=== PATIENT | male | born 1995 | race Caucasian/White ===

== ENCOUNTER 2019-04-25 19:12 | Emergency (ER) | payer MEDICAID ==
[~2019-04-25] VITALS: Ht 177.8 cm; Wt 72.7 kg
[2019-04-25 19:14] VITALS: Ht 177.8 cm; Wt 72.7 kg
[2019-04-25] MEDS ORDERED: ATIVAN1 MG (19:15)
[2019-04-25 19:46] LABS: BASOPHILS 0.2 % (0-2); EOSINOPHILS 1.9 % (0-7); HEMATOCRIT 40.8 % (42.0-54.0); HEMOGLOBIN 14.3 g/dL (13.5-17.5); IMMATURE GRANULOCYTES 0.2 % (0-5); LYMPHOCYTES 37.2 % (15-50); MCH 26.7 pg (26.0-34.0); MCV 76.1 fL (80.0-100.0); MEAN PLATELET VOLUME 8.3 fL (7.4-10.4); MONOCYTES 6.5 % (2-11); PLATELET COUNT 273 10x3/uL (130-400); RBC 5.36 10x6/uL (4.20-6.10); RDW 13.2 % (11.5-14.5); WBC 5.2 10x3/uL (4.8-10.8)
[2019-04-25 19:48] LABS: APPEARANCE CLEAR (CLEAR); BILIRUBIN NEGATIVE (NEGATIVE); COLOR STRAW (YELLOW); GLUCOSE NEGATIVE (NEGATIVE); KETONE NEGATIVE (NEGATIVE); NITRITE NEGATIVE (NEGATIVE); PROTEIN NEGATIVE (NEGATIVE); UROBILINOGEN NORMAL (NORMAL)
[2019-04-25 19:59] LABS: UDS - AMPHET NEGATIVE QUAL (NEGATIVE); UDS - BARB NEGATIVE QUAL (NEGATIVE); UDS - BENZO NEGATIVE QUAL (NEGATIVE); UDS - COCAINE NEGATIVE QUAL (NEGATIVE); UDS - OPIATE NEGATIVE QUAL (NEGATIVE); UDS - PCP NEGATIVE QUAL (NEGATIVE); UDS - THC POSITIVE QUAL (NEGATIVE)
--- NOTE | 2019-04-25 20:00 | NUR ---
NURSE PRESENT UPON ARRIVAL FOR SUICIDE ASSESSMENT. DR. BOTELLO NOTIFIED AND 1:1 SITTER OBSERVATION ORDERED. SITTER AT BEDSIDE. NOTIFIED CHARGE NURSE AND ATTENDING IN REGARDS TO ASSESSMENT FINDINGS. RESOURCES GIVEN TO PT AND SAFETY PLAN INITIATED.
[2019-04-25 20:24] LABS: ALBUMIN 3.9 g/dL (3.4-5.0); ALKALINE PHOSPHATASE 37 U/L (46-116); ALT (SGPT) 28 U/L (10-68); BILIRUBIN - TOTAL 0.25 mg/dL (0.2-1.3); CALC OSMOLALITY 286 mosm/kg (275-300); CARBON DIOXIDE 25.5 mmol/L (21.0-32.0); CHLORIDE - SERUM 108 mmol/L (98-107); CREATININE - SERUM 0.8 mg/dL (0.6-1.3); GLUCOSE 111 mg/dL (74-106); LIPASE 179 U/L (73-393); POTASSIUM - SERUM 3.9 mmol/L (3.5-5.1); PROTEIN - SERUM 7.1 g/dL (6.4-8.2); SODIUM 144 mmol/L (136-145); UREA NITROGEN 9 mg/dL (7-18); eGFR NON AFRICAN AMERICAN > 90 mL/min (90-120)
[2019-04-26 07:44] VITALS: BP 110/78
== END 2019-04-26 07:45 ==
LOC: D.ER 19:12
PROVIDERS: Family Medicine
DX: R45.851 Suicidal ideations (principal); F32.9 Major depressive disorder, single episode, unspecified; F10.129 Alcohol abuse with intoxication, unspecified; F11.20 Opioid dependence, uncomplicated

== ENCOUNTER 2019-05-17 06:28 | Emergency (ER) | payer MEDICAID ==
[~2019-05-17] VITALS: Ht 177.8 cm; Wt 86.4 kg
[~2019-05-17 06:28] MED LIST: ATIVAN1 MG
[2019-05-17 06:31] VITALS: Ht 177.8 cm; Wt 86.4 kg
[2019-05-17] MEDS ORDERED: SEROQUEL300 MG PO (06:33)
[2019-05-17 06:59] LABS: BASOPHILS 0.1 % (0-2); EOSINOPHILS 1.5 % (0-7); HEMOGLOBIN 13.9 g/dL (13.5-17.5); IMMATURE GRANULOCYTES 0.1 % (0-5); LYMPHOCYTES 20.5 % (15-50); MCH 26.9 pg (26.0-34.0); MCHC 33.9 g/dL (31.0-37.0); MCV 79.5 fL (80.0-100.0); MEAN PLATELET VOLUME 8.2 fL (7.4-10.4); MONOCYTES 12.3 % (2-11); NEUTROPHILS 65.5 % (40-80); PLATELET COUNT 235 10x3/uL (130-400); RBC 5.16 10x6/uL (4.20-6.10); RDW 15.5 % (11.5-14.5); WBC 6.8 10x3/uL (4.8-10.8)
[2019-05-17 07:18] LABS: ALBUMIN 3.6 g/dL (3.4-5.0); ALKALINE PHOSPHATASE 41 U/L (46-116); ALT (SGPT) 20 U/L (10-68); BILIRUBIN - TOTAL 0.23 mg/dL (0.2-1.3); CALC OSMOLALITY 285 mosm/kg (275-300); CALCIUM 8.9 mg/dL (8.5-10.1); CARBON DIOXIDE 25.2 mmol/L (21.0-32.0); CHLORIDE - SERUM 109 mmol/L (98-107); CREATININE - SERUM 0.9 mg/dL (0.6-1.3); GLUCOSE 103 mg/dL (74-106); POTASSIUM - SERUM 3.6 mmol/L (3.5-5.1); PROTEIN - SERUM 6.8 g/dL (6.4-8.2); SODIUM 145 mmol/L (136-145); UREA NITROGEN 5 mg/dL (7-18); eGFR NON AFRICAN AMERICAN > 90 mL/min (90-120)
[2019-05-17 07:26] LABS: UDS - AMPHET NEGATIVE QUAL (NEGATIVE); UDS - BARB NEGATIVE QUAL (NEGATIVE); UDS - BENZO POSITIVE QUAL (NEGATIVE); UDS - COCAINE NEGATIVE QUAL (NEGATIVE); UDS - OPIATE NEGATIVE QUAL (NEGATIVE); UDS - PCP NEGATIVE QUAL (NEGATIVE); UDS - THC POSITIVE QUAL (NEGATIVE)
--- NOTE | 2019-05-17 07:45 | NUR ---
DR BOTELLO NOTIFIED AND REVIEWED PT's BEHAVIOR AND ASSESSMENT RESULTS. PT IS A LOW RISK PER DR BOTELLO. DR BOTELLO STATED TO GIVE RESOURCES AT TIME OF DISCHARGE. NO FURTHER ORDERS AT THIS TIME, RESOURCES REVIEWED WITH PT AND HE VERBALIZED UNDERSTANDING.
[2019-05-17 08:14] LABS: APPEARANCE HAZY (CLEAR); BILIRUBIN NEGATIVE (NEGATIVE); COLOR YELLOW (YELLOW); GLUCOSE NEGATIVE (NEGATIVE); KETONE SMALL mg/dL (NEGATIVE); NITRITE NEGATIVE (NEGATIVE); PROTEIN NEGATIVE (NEGATIVE); SPECIFIC GRAVITY 1.015 (1.005-1.020); UROBILINOGEN NORMAL (NORMAL)
[2019-05-17 08:15] LABS: BACTERIA FEW /hpf (NONE SEEN); EPITHELIAL CELLS RARE /hpf (0-5); WHITE CELLS - URINE OCC /hpf (0-5)
--- NOTE | 2019-05-17 08:18 | NUR ---
Ingrid CALLED AND STATED THAT THE PT HAS CHANGED HIS STORY AND NOW STATES THAT HE IS SUICIDAL BECAUSE HIS RIDE HOME WILL NOT COME AND GET HIM, CALLED DR BOTELLO AND HE STATED TO PLACE THE PT ON 1:1 OBSERVATION AND ARRANGE PLACEMENT FOR PT.
[2019-05-17 08:35] VITALS: BP 121/62
--- NOTE | 2019-05-17 08:36 | NUR ---
REVIEWED PT STATEMENTS AND ASSESSMENT WITH ATTENDING DR MIR, HE STATED THAT THE PT IS NOT SUICIDAL AND HE CAN BE DISCHARGED.
== END 2019-05-17 08:35 | disposition home or self-care (01) ==
LOC: D.ER 06:28
PROVIDERS: Emergency Medicine
DX: S00.93XA Contusion of unspecified part of head, initial encounter (principal); W18.30XA Fall on same level, unspecified, initial encounter; Y93.89 Activity, other specified; Y92.89 Other specified places as the place of occurrence of the external cause